=== PATIENT | male | born 1930 | race Caucasian/White ===

== ENCOUNTER 2016-08-21 13:40 | Inpatient (IN) | payer MEDICARE, BC ==
[~2016-08-21 13:40] MED LIST: ALPRAZOLAM0.5 MG PO; ATENOLOL25 MG PO; AZOR 5/20 MG TA1 TAB PO; BAYER81 MG PO; CALCIUM PO; CATAPRES-T0.1 MG/24 TD; FLOMAX0.4 MG PO; FUROSEMIDE40 MG PO; LORTAB 5/500 TA1 TAB PO; OMEPRAZOLE20 MG PO; POLYETHYLENE GLYCOL PO; SIMVASTATIN40 MG PO; TYLENOL325 MG PO; ZADITOR5 ML OP; [UNRECOGNIZED DRUG - OTHER] PO
[2016-08-21] MEDS ORDERED: ALLOPURINOL300 M1 PO (14:33)
[2016-08-21] MEDS ORDERED: ASPIRIN81 M1 PO (14:34)
[2016-08-21] MEDS ORDERED: XANAX0.25 M1 PO (14:34)
[2016-08-21] MEDS ORDERED: TENORMIN25 M1 PO (14:34)
[2016-08-21] MEDS ORDERED: CATAPRES-TTS 11 EACH TP (14:35)
[2016-08-21] MEDS ORDERED: CENTRUM SILVER1 EAC3 PO (14:35)
[2016-08-21] MEDS ORDERED: CALTRATE 600 +1 EAC2 PO (14:35)
[2016-08-21] MEDS ORDERED: FLECAINIDE ACET50 M1 PO (14:36)
[2016-08-21] MEDS ORDERED: LASIX40 M1 PO (14:37)
[2016-08-21] MEDS ORDERED: ZOCOR20 M1 PO (14:37)
[2016-08-21] MEDS ORDERED: OMEPRAZOLE20 M4 PO (14:37)
[2016-08-21] MEDS ORDERED: MIRALAX17 G2 PO (14:37)
[2016-08-21] MEDS ORDERED: VITAMIN D31000 UNI3 PO (14:38)
[2016-08-21] MEDS ORDERED: TART CHERRY CA1 EACH PO (14:38)
[2016-08-21] MEDS ORDERED: VITAMIN C500 M3 PO (14:38)
[2016-08-21] MEDS ORDERED: TYLENOL325 M2 PO (14:38)
[2016-08-21] MEDS ORDERED: NORVASC10 M2 PO (14:39)
[2016-08-21] MEDS ORDERED: CLARITIN10 M6 PO (14:39)
[2016-08-21] MEDS ORDERED: COZAAR50 M1 PO (14:39)
[2016-08-21 17:45] LABS: BASO % 0.2 % (0-2); EOS % 2.2 % (0-7); EOSINOPHIL ABSOLUTE COUNT 0.2 tho/cmm (0.0-0.7); HCT-HEMATOCRIT 33.7 % (36.0-53.5); HGB-HEMOGLOBIN 10.7 gm/dl (13.5-17.0); IMMATURE GRANULOCYTES ABSOLUTE 0.05 tho/cmm (0-0.03); IMMATURE GRANULOCYTES PERCENT 0.5 % (0-0.3); LYMPH % 25.4 % (20-45); LYMPH ABSOLUTE COUNT 2.7 tho/cmm (0.8-4.5); MCH (MEAN CORPUSCULAR HGB) 25.7 pg (28.0-32.0); MCHC MEAN CORPUSCULAR HGB CONC 31.8 % (32.0-36.0); MEAN PLATELET VOLUME 9.1 cmc (9.4-12.4); MONO % 7.7 % (0-12); MONOCYTE ABSOLUTE COUNT 0.8 tho/cmm (0.0-1.2); NEUTROPHIL ABSOLUTE COUNT 6.8 tho/cmm (1.6-8.0); NEUTROPHIL-AUTOMATED 6.8 tho/cmm (1.6-8.0); PLATELET COUNT 230 tho/cmm (150-450); RED BLOOD COUNT 4.16 mil/cmm (4.40-5.70); RED CELL DISTRIBUTION WIDTH 17.8 % (12.4-16.4); WHITE BLOOD COUNT 10.6 tho/cmm (4.0-10.0)
[2016-08-21 18:04] LABS: ALB/GLOB RATIO 0.6 (0.8-2.0); ALBUMIN 2.7 g/dl (3.5-5.0); ALKALINE PHOSPHATASE 73 U/L (33-138); ALT/SGPT 24 U/L (12-78); BILIRUBIN,TOTAL 0.3 mg/dl (0.0-1.5); BLOOD UREA NITROGEN 60 mg/dl (6-24); CALCIUM 8.7 mg/dl (8.5-10.5); CARBON DIOXIDE-VENOUS 25 mmol/L (22-32); CHLORIDE 106 mmol/l (96-110); CREATININE 3.63 mg/dl (0.60-1.30); GLUCOSE 89 mg/dL (70-110); SODIUM 139 mmol/L (135-145); eGFR VALUE FOR BLACK 17 mL/Min
[2016-08-21 18:05] LABS: ANION GAP 13 mmol/L (0-20); AST/SGOT 33 U/L (10-40); POTASSIUM 5.2 mmol/L (3.7-5.1)
[2016-08-21 20:48] LABS: URINE APPEARANCE CLEAR; URINE BILIRUBIN NEGATIVE (NEG); URINE BLOOD LARGE (NEG); URINE COLOR YELLOW; URINE GLUCOSE (UA) NEGATIVE (NEG); URINE KETONE NEGATIVE (NEG); URINE LEUKOCYTE ESTERASE NEGATIVE (NEG); URINE NITRITE NEGATIVE (NEG); URINE PROTEIN MODERATE (NEG)
[2016-08-21 20:54] LABS: URINE EPITHELIAL CELLS 0 /[HPF] (0-10); URINE RBC 15-20 /[HPF] (0-5); URINE WBC 0-1 /[HPF] (0-5)
[2016-08-21 21:03] LABS: URINE TOTAL PROTEIN-RANDOM 47.4 mg/dl (<11.8)
[2016-08-22 05:07] LABS: BASO % 0.7 % (0-2); BASO ABSOLUTE COUNT 0.1 tho/cmm (0.0-0.2); EOS % 2.1 % (0-7); EOSINOPHIL ABSOLUTE COUNT 0.2 tho/cmm (0.0-0.7); IMMATURE GRANULOCYTES ABSOLUTE 0.05 tho/cmm (0-0.03); IMMATURE GRANULOCYTES PERCENT 0.5 % (0-0.3); LYMPH % 14.5 % (20-45); LYMPH ABSOLUTE COUNT 1.5 tho/cmm (0.8-4.5); MCHC MEAN CORPUSCULAR HGB CONC 32.4 % (32.0-36.0); MCV (MEAN CELL VOLUME) 80.4 fl (82.0-96.0); MONO % 8.2 % (0-12); MONOCYTE ABSOLUTE COUNT 0.9 tho/cmm (0.0-1.2); NEUTROPHIL ABSOLUTE COUNT 7.7 tho/cmm (1.6-8.0); NEUTROPHIL-AUTOMATED 7.7 tho/cmm (1.6-8.0); PLATELET COUNT 268 tho/cmm (150-450); RED BLOOD COUNT 4.23 mil/cmm (4.40-5.70); RED CELL DISTRIBUTION WIDTH 17.9 % (12.4-16.4); WHITE BLOOD COUNT 10.4 tho/cmm (4.0-10.0)
[2016-08-22 05:28] LABS: IRON 37 ug/dl (49-181); IRON BINDING CAPACITY 209 ug/dl (250-450)
[2016-08-22 05:38] LABS: ALBUMIN 2.7 g/dl (3.5-5.0); ANION GAP 15 mmol/L (0-20); BLOOD UREA NITROGEN 62 mg/dl (6-24); CALCIUM 9.2 mg/dl (8.5-10.5); CARBON DIOXIDE-VENOUS 27 mmol/L (22-32); CHLORIDE 106 mmol/l (96-110); CREATININE 3.78 mg/dl (0.60-1.30); FERRITIN 269 ng/ml (22-388); GLUCOSE 107 mg/dL (70-110); PHOSPHOROUS 4.9 mg/dl (2.5-4.9); POTASSIUM 4.8 mmol/L (3.7-5.1); SODIUM 143 mmol/L (135-145); eGFR VALUE FOR BLACK 16 mL/Min
[2016-08-23 01:07] LABS: URINE PRT/CR RATIO 2.65 Ratio (0.0-0.20); URINE TOTAL PROTEIN-RANDOM 106.2 mg/dl (<11.8)
[2016-08-23 05:12] LABS: ALBUMIN 2.6 g/dl (3.5-5.0); ANION GAP 15 mmol/L (0-20); BLOOD UREA NITROGEN 64 mg/dl (6-24); CALCIUM 8.9 mg/dl (8.5-10.5); CARBON DIOXIDE-VENOUS 27 mmol/L (22-32); CHLORIDE 104 mmol/l (96-110); GLUCOSE 99 mg/dL (70-110); PHOSPHOROUS 4.8 mg/dl (2.5-4.9); POTASSIUM 4.9 mmol/L (3.7-5.1); SODIUM 141 mmol/L (135-145); eGFR VALUE FOR BLACK 15 mL/Min
--- NOTE | 2016-08-23 17:39 | NUR ---
AGREE WITH STUDENTS CHARTING 08/23, 08/22
[2016-08-24 06:54] LABS: ANION GAP 14 mmol/L (0-20); BLOOD UREA NITROGEN 68 mg/dl (6-24); CALCIUM 8.8 mg/dl (8.5-10.5); CARBON DIOXIDE-VENOUS 25 mmol/L (22-32); CHLORIDE 104 mmol/l (96-110); GLUCOSE 100 mg/dL (70-110); POTASSIUM 4.4 mmol/L (3.7-5.1); SODIUM 139 mmol/L (135-145); eGFR VALUE FOR BLACK 15 mL/Min
[2016-08-25 06:10] LABS: EOS % 0.1 % (0-7); HCT-HEMATOCRIT 34.7 % (36.0-53.5); HGB-HEMOGLOBIN 11.3 gm/dl (13.5-17.0); IMMATURE GRANULOCYTES ABSOLUTE 0.04 tho/cmm (0-0.03); IMMATURE GRANULOCYTES PERCENT 0.5 % (0-0.3); LYMPH % 14.7 % (20-45); LYMPH ABSOLUTE COUNT 1.1 tho/cmm (0.8-4.5); MCH (MEAN CORPUSCULAR HGB) 25.7 pg (28.0-32.0); MCHC MEAN CORPUSCULAR HGB CONC 32.6 % (32.0-36.0); MCV (MEAN CELL VOLUME) 78.9 fl (82.0-96.0); MEAN PLATELET VOLUME 9.4 cmc (9.4-12.4); MONO % 0.4 % (0-12); NEUTROPHIL ABSOLUTE COUNT 6.5 tho/cmm (1.6-8.0); NEUTROPHIL-AUTOMATED 6.5 tho/cmm (1.6-8.0); NEUTROPHILS % 84.3 % (40-80); PLATELET COUNT 208 tho/cmm (150-450); RED CELL DISTRIBUTION WIDTH 17.4 % (12.4-16.4); WHITE BLOOD COUNT 7.7 tho/cmm (4.0-10.0)
[2016-08-25 06:35] LABS: ALBUMIN 2.4 g/dl (3.5-5.0); BLOOD UREA NITROGEN 77 mg/dl (6-24); CALCIUM 8.7 mg/dl (8.5-10.5); CARBON DIOXIDE-VENOUS 22 mmol/L (22-32); CHLORIDE 105 mmol/l (96-110); PHOSPHOROUS 4.9 mg/dl (2.5-4.9); SODIUM 137 mmol/L (135-145)
[2016-08-25 07:17] LABS: ANION GAP 15 mmol/L (0-20); GLUCOSE 166 mg/dL (70-110); POTASSIUM 4.8 mmol/L (3.7-5.1)
[2016-08-25 07:18] LABS: CREATININE 4.09 mg/dl (0.60-1.30); eGFR VALUE FOR BLACK 15 mL/Min
[2016-08-25 13:52] LABS: INR 1.2 INR (0.9-1.1); PROTHROMBIN TIME 14.3 SECONDS (9.0-13.6)
[2016-08-26 05:26] LABS: ANION GAP 16 mmol/L (0-20); BLOOD UREA NITROGEN 86 mg/dl (6-24); CARBON DIOXIDE-VENOUS 22 mmol/L (22-32); CHLORIDE 106 mmol/l (96-110); CREATININE 4.04 mg/dl (0.60-1.30); GLUCOSE 148 mg/dL (70-110); SODIUM 140 mmol/L (135-145); eGFR VALUE FOR BLACK 15 mL/Min
[2016-08-26 05:29] LABS: POTASSIUM 4.4 mmol/L (3.7-5.1)
[2016-08-27 06:04] LABS: HCT-HEMATOCRIT 36.2 % (36.0-53.5); HGB-HEMOGLOBIN 11.7 gm/dl (13.5-17.0); IMMATURE GRANULOCYTES ABSOLUTE 0.07 tho/cmm (0-0.03); IMMATURE GRANULOCYTES PERCENT 0.4 % (0-0.3); LYMPH % 8.3 % (20-45); LYMPH ABSOLUTE COUNT 1.3 tho/cmm (0.8-4.5); MCH (MEAN CORPUSCULAR HGB) 25.7 pg (28.0-32.0); MCHC MEAN CORPUSCULAR HGB CONC 32.3 % (32.0-36.0); MCV (MEAN CELL VOLUME) 79.4 fl (82.0-96.0); MEAN PLATELET VOLUME 9.6 cmc (9.4-12.4); MONO % 2.7 % (0-12); MONOCYTE ABSOLUTE COUNT 0.4 tho/cmm (0.0-1.2); NEUTROPHIL ABSOLUTE COUNT 14.3 tho/cmm (1.6-8.0); NEUTROPHIL-AUTOMATED 14.3 tho/cmm (1.6-8.0); NEUTROPHILS % 88.6 % (40-80); PLATELET COUNT 231 tho/cmm (150-450); RED BLOOD COUNT 4.56 mil/cmm (4.40-5.70); RED CELL DISTRIBUTION WIDTH 17.8 % (12.4-16.4)
[2016-08-27 06:20] LABS: BLOOD UREA NITROGEN 84 mg/dl (6-24); CALCIUM 8.7 mg/dl (8.5-10.5); CARBON DIOXIDE-VENOUS 21 mmol/L (22-32); CHLORIDE 109 mmol/l (96-110); GLUCOSE 143 mg/dL (70-110); SODIUM 140 mmol/L (135-145)
[2016-08-27 06:23] LABS: CREATININE 3.55 mg/dl (0.60-1.30); PHOSPHOROUS 5.5 mg/dl (2.5-4.9); eGFR VALUE FOR BLACK 17 mL/Min
[2016-08-27 06:24] LABS: WHITE BLOOD COUNT 16.1 tho/cmm (4.0-10.0)
[2016-08-27 06:33] LABS: ALBUMIN 3.7 g/dl (3.5-5.0); ANION GAP 15 mmol/L (0-20); POTASSIUM 4.8 mmol/L (3.7-5.1)
[2016-08-28 05:28] LABS: INR 1.4 INR (0.9-1.1)
[2016-08-28 05:33] LABS: BASO % 0.1 % (0-2); HCT-HEMATOCRIT 34.5 % (36.0-53.5); HGB-HEMOGLOBIN 11.1 gm/dl (13.5-17.0); IMMATURE GRANULOCYTES PERCENT 0.6 % (0-0.3); LYMPH % 10.2 % (20-45); LYMPH ABSOLUTE COUNT 1.9 tho/cmm (0.8-4.5); MCH (MEAN CORPUSCULAR HGB) 25.5 pg (28.0-32.0); MCHC MEAN CORPUSCULAR HGB CONC 32.2 % (32.0-36.0); MCV (MEAN CELL VOLUME) 79.1 fl (82.0-96.0); MEAN PLATELET VOLUME 10.2 cmc (9.4-12.4); MONO % 6.4 % (0-12); MONOCYTE ABSOLUTE COUNT 1.2 tho/cmm (0.0-1.2); NEUTROPHILS % 82.7 % (40-80); PLATELET COUNT 198 tho/cmm (150-450); RED BLOOD COUNT 4.36 mil/cmm (4.40-5.70); RED CELL DISTRIBUTION WIDTH 17.9 % (12.4-16.4); WHITE BLOOD COUNT 18.2 tho/cmm (4.0-10.0)
[2016-08-28 05:43] LABS: ANION GAP 15 mmol/L (0-20); BLOOD UREA NITROGEN 79 mg/dl (6-24); CALCIUM 8.2 mg/dl (8.5-10.5); CARBON DIOXIDE-VENOUS 20 mmol/L (22-32); CHLORIDE 113 mmol/l (96-110); GLUCOSE 128 mg/dL (70-110); POTASSIUM 4.3 mmol/L (3.7-5.1); SODIUM 144 mmol/L (135-145); eGFR VALUE FOR BLACK 18 mL/Min
[2016-08-29 06:14] LABS: ALBUMIN 3.4 g/dl (3.5-5.0); ANION GAP 13 mmol/L (0-20); BLOOD UREA NITROGEN 72 mg/dl (6-24); CALCIUM 8.4 mg/dl (8.5-10.5); CARBON DIOXIDE-VENOUS 21 mmol/L (22-32); CHLORIDE 113 mmol/l (96-110); CREATININE 3.36 mg/dl (0.60-1.30); GLUCOSE 126 mg/dL (70-110); PHOSPHOROUS 4.3 mg/dl (2.5-4.9); SODIUM 143 mmol/L (135-145); eGFR VALUE FOR BLACK 19 mL/Min
--- NOTE | 2016-08-29 14:28 | NUR ---
AGREE WITH STUDENT CHARTING 4/5, 4/6
[2016-08-30 06:26] LABS: ANION GAP 16 mmol/L (0-20); BLOOD UREA NITROGEN 71 mg/dl (6-24); CALCIUM 8.1 mg/dl (8.5-10.5); CARBON DIOXIDE-VENOUS 15 mmol/L (22-32); CHLORIDE 115 mmol/l (96-110); CREATININE 3.25 mg/dl (0.60-1.30); GLUCOSE 127 mg/dL (70-110); SODIUM 141 mmol/L (135-145); eGFR VALUE FOR BLACK 19 mL/Min
[2016-08-30 06:28] LABS: POTASSIUM 4.5 mmol/L (3.7-5.1)
[2016-08-31 04:57] LABS: BASO % 0.1 % (0-2); EOS % 0.1 % (0-7); HCT-HEMATOCRIT 33.6 % (36.0-53.5); IMMATURE GRANULOCYTES ABSOLUTE 0.23 tho/cmm (0-0.03); IMMATURE GRANULOCYTES PERCENT 1.2 % (0-0.3); LYMPH % 8.8 % (20-45); LYMPH ABSOLUTE COUNT 1.7 tho/cmm (0.8-4.5); MCH (MEAN CORPUSCULAR HGB) 25.6 pg (28.0-32.0); MCHC MEAN CORPUSCULAR HGB CONC 32.7 % (32.0-36.0); MCV (MEAN CELL VOLUME) 78.1 fl (82.0-96.0); MEAN PLATELET VOLUME 10.4 cmc (9.4-12.4); MONO % 5.7 % (0-12); MONOCYTE ABSOLUTE COUNT 1.1 tho/cmm (0.0-1.2); NEUTROPHILS % 84.1 % (40-80); PLATELET COUNT 180 tho/cmm (150-450); RED CELL DISTRIBUTION WIDTH 17.9 % (12.4-16.4)
[2016-08-31 05:03] LABS: ALBUMIN 3.6 g/dl (3.5-5.0); ANION GAP 14 mmol/L (0-20); BLOOD UREA NITROGEN 72 mg/dl (6-24); CALCIUM 8.4 mg/dl (8.5-10.5); CARBON DIOXIDE-VENOUS 19 mmol/L (22-32); CHLORIDE 112 mmol/l (96-110); CREATININE 3.21 mg/dl (0.60-1.30); GLUCOSE 123 mg/dL (70-110); PHOSPHOROUS 3.8 mg/dl (2.5-4.9); POTASSIUM 4.1 mmol/L (3.7-5.1); SODIUM 141 mmol/L (135-145); eGFR VALUE FOR BLACK 20 mL/Min
[2016-09-01 06:01] LABS: BASO % 0.1 % (0-2); HCT-HEMATOCRIT 33.9 % (36.0-53.5); HGB-HEMOGLOBIN 11.5 gm/dl (13.5-17.0); IMMATURE GRANULOCYTES ABSOLUTE 0.42 tho/cmm (0-0.03); IMMATURE GRANULOCYTES PERCENT 1.8 % (0-0.3); LYMPH % 5.6 % (20-45); LYMPH ABSOLUTE COUNT 1.3 tho/cmm (0.8-4.5); MCH (MEAN CORPUSCULAR HGB) 25.8 pg (28.0-32.0); MCHC MEAN CORPUSCULAR HGB CONC 33.9 % (32.0-36.0); MEAN PLATELET VOLUME 10.4 cmc (9.4-12.4); MONO % 2.1 % (0-12); MONOCYTE ABSOLUTE COUNT 0.5 tho/cmm (0.0-1.2); NEUTROPHILS % 90.4 % (40-80); PLATELET COUNT 152 tho/cmm (150-450); RED BLOOD COUNT 4.46 mil/cmm (4.40-5.70); RED CELL DISTRIBUTION WIDTH 17.9 % (12.4-16.4); WHITE BLOOD COUNT 23.3 tho/cmm (4.0-10.0)
[2016-09-01 06:17] LABS: ANION GAP 15 mmol/L (0-20); BLOOD UREA NITROGEN 67 mg/dl (6-24); CALCIUM 8.6 mg/dl (8.5-10.5); CARBON DIOXIDE-VENOUS 17 mmol/L (22-32); CHLORIDE 113 mmol/l (96-110); CREATININE 3.23 mg/dl (0.60-1.30); GLUCOSE 127 mg/dL (70-110); POTASSIUM 4.2 mmol/L (3.7-5.1); SODIUM 141 mmol/L (135-145); eGFR VALUE FOR BLACK 19 mL/Min
[2016-09-01 07:01] LABS: ABG CO2 ARTERIAL 15 mmol/L (21-27); ARTERIAL BLD GAS O2 SATURATION 92 % (95-98); ARTERIAL BLOOD GAS PCO2 26 mmHg (32-45); ARTERIAL PO2 62 mmHg (70-100); BICARBONATE 15 mmol/L (21-28); BLOOD GAS BASE EXCESS -9 mM/L (-/+3); PH 7.36 Units (7.35-7.45)
[2016-09-01 09:11] LABS: INR 1.4 INR (0.9-1.1); PROTHROMBIN TIME 16.6 SECONDS (9.0-13.6)
[2016-09-01 09:22] LABS: ALBUMIN 3.7 g/dl (3.5-5.0); ALKALINE PHOSPHATASE 29 U/L (33-138); ALT/SGPT 17 U/L (12-78); ANION GAP 15 mmol/L (0-20); AST/SGOT 12 U/L (10-40); BILIRUBIN,TOTAL 1.3 mg/dl (0.0-1.5); BLOOD UREA NITROGEN 64 mg/dl (6-24); CALCIUM 8.6 mg/dl (8.5-10.5); CARBON DIOXIDE-VENOUS 16 mmol/L (22-32); CHLORIDE 113 mmol/l (96-110); CREATININE 3.34 mg/dl (0.60-1.30); GLUCOSE 125 mg/dL (70-110); POTASSIUM 4.1 mmol/L (3.7-5.1); SODIUM 140 mmol/L (135-145); eGFR VALUE FOR BLACK 19 mL/Min
[2016-09-01 09:38] LABS: PROCALCITONIN 2.07 ng/ml (0.05-0.09)
[2016-09-01 16:20] LABS: ANION GAP 18 mmol/L (0-20); BLOOD UREA NITROGEN 65 mg/dl (6-24); CALCIUM 8.4 mg/dl (8.5-10.5); CARBON DIOXIDE-VENOUS 16 mmol/L (22-32); CHLORIDE 108 mmol/l (96-110); CREATININE 3.35 mg/dl (0.60-1.30); POTASSIUM 3.9 mmol/L (3.7-5.1); SODIUM 138 mmol/L (135-145); eGFR VALUE FOR BLACK 19 mL/Min
[2016-09-01 16:21] LABS: GLUCOSE 233 mg/dL (70-110)
[2016-09-02 05:29] LABS: BASO % 0.1 % (0-2); HCT-HEMATOCRIT 32.1 % (36.0-53.5); IMMATURE GRANULOCYTES ABSOLUTE 0.23 tho/cmm (0-0.03); LYMPH % 5.7 % (20-45); LYMPH ABSOLUTE COUNT 1.3 tho/cmm (0.8-4.5); MCH (MEAN CORPUSCULAR HGB) 25.9 pg (28.0-32.0); MCHC MEAN CORPUSCULAR HGB CONC 34.3 % (32.0-36.0); MCV (MEAN CELL VOLUME) 75.5 fl (82.0-96.0); MEAN PLATELET VOLUME 10.4 cmc (9.4-12.4); MONO % 2.2 % (0-12); MONOCYTE ABSOLUTE COUNT 0.5 tho/cmm (0.0-1.2); NEUTROPHIL ABSOLUTE COUNT 20.1 tho/cmm (1.6-8.0); NEUTROPHIL-AUTOMATED 20.1 tho/cmm (1.6-8.0); PLATELET COUNT 142 tho/cmm (150-450); RED BLOOD COUNT 4.25 mil/cmm (4.40-5.70); RED CELL DISTRIBUTION WIDTH 18.2 % (12.4-16.4); WHITE BLOOD COUNT 22.1 tho/cmm (4.0-10.0)
[2016-09-02 05:39] LABS: ALBUMIN 2.8 g/dl (3.5-5.0); ANION GAP 18 mmol/L (0-20); BLOOD UREA NITROGEN 66 mg/dl (6-24); CALCIUM 8.8 mg/dl (8.5-10.5); CARBON DIOXIDE-VENOUS 19 mmol/L (22-32); CHLORIDE 108 mmol/l (96-110); CREATININE 3.61 mg/dl (0.60-1.30); GLUCOSE 149 mg/dL (70-110); PHOSPHOROUS 4.2 mg/dl (2.5-4.9); SODIUM 141 mmol/L (135-145); eGFR VALUE FOR BLACK 17 mL/Min
[2016-09-03 04:37] LABS: ALBUMIN 3.5 g/dl (3.5-5.0); ANION GAP 20 mmol/L (0-20); BLOOD UREA NITROGEN 73 mg/dl (6-24); CALCIUM 8.4 mg/dl (8.5-10.5); CARBON DIOXIDE-VENOUS 18 mmol/L (22-32); CHLORIDE 108 mmol/l (96-110); CREATININE 4.04 mg/dl (0.60-1.30); GLUCOSE 133 mg/dL (70-110); MAGNESIUM 1.6 mg/dl (1.3-2.6); SODIUM 142 mmol/L (135-145); eGFR VALUE FOR BLACK 15 mL/Min
[2016-09-03 04:43] LABS: PHOSPHOROUS 5.7 mg/dl (2.5-4.9)
[2016-09-03 04:55] LABS: ABG CO2 ARTERIAL 15 mmol/L (21-27); ARTERIAL BLD GAS O2 SATURATION 92 % (95-98); ARTERIAL BLOOD GAS PCO2 29 mmHg (32-45); ARTERIAL PO2 66 mmHg (70-100); BICARBONATE 14 mmol/L (21-28); BLOOD GAS BASE EXCESS -11 mM/L (-/+3)
[2016-09-03 05:07] LABS: BASO % 0.1 % (0-2); HCT-HEMATOCRIT 31.8 % (36.0-53.5); HGB-HEMOGLOBIN 11.1 gm/dl (13.5-17.0); IMMATURE GRANULOCYTES ABSOLUTE 0.42 tho/cmm (0-0.03); IMMATURE GRANULOCYTES PERCENT 1.8 % (0-0.3); LYMPH % 5.1 % (20-45); LYMPH ABSOLUTE COUNT 1.2 tho/cmm (0.8-4.5); MCH (MEAN CORPUSCULAR HGB) 26.1 pg (28.0-32.0); MCHC MEAN CORPUSCULAR HGB CONC 34.9 % (32.0-36.0); MCV (MEAN CELL VOLUME) 74.6 fl (82.0-96.0); MEAN PLATELET VOLUME 10.7 cmc (9.4-12.4); MONO % 2.4 % (0-12); MONOCYTE ABSOLUTE COUNT 0.6 tho/cmm (0.0-1.2); NEUTROPHIL ABSOLUTE COUNT 21.2 tho/cmm (1.6-8.0); NEUTROPHIL-AUTOMATED 21.2 tho/cmm (1.6-8.0); NEUTROPHILS % 90.6 % (40-80); PLATELET COUNT 143 tho/cmm (150-450); RED BLOOD COUNT 4.26 mil/cmm (4.40-5.70); RED CELL DISTRIBUTION WIDTH 18.4 % (12.4-16.4); WHITE BLOOD COUNT 23.4 tho/cmm (4.0-10.0)
[2016-09-03 07:19] LABS: WBC MORPHOLOGY TOXIC GRANULATION
[2016-09-04 05:15] LABS: BASO % 0.1 % (0-2); HCT-HEMATOCRIT 29.8 % (36.0-53.5); HGB-HEMOGLOBIN 10.2 gm/dl (13.5-17.0); IMMATURE GRANULOCYTES ABSOLUTE 0.31 tho/cmm (0-0.03); IMMATURE GRANULOCYTES PERCENT 1.6 % (0-0.3); LYMPH % 4.9 % (20-45); LYMPH ABSOLUTE COUNT 0.9 tho/cmm (0.8-4.5); MCH (MEAN CORPUSCULAR HGB) 25.6 pg (28.0-32.0); MCHC MEAN CORPUSCULAR HGB CONC 34.2 % (32.0-36.0); MCV (MEAN CELL VOLUME) 74.7 fl (82.0-96.0); MONO % 3.4 % (0-12); MONOCYTE ABSOLUTE COUNT 0.7 tho/cmm (0.0-1.2); NEUTROPHIL ABSOLUTE COUNT 17.4 tho/cmm (1.6-8.0); NEUTROPHIL-AUTOMATED 17.4 tho/cmm (1.6-8.0); PLATELET COUNT 159 tho/cmm (150-450); RED BLOOD COUNT 3.99 mil/cmm (4.40-5.70); RED CELL DISTRIBUTION WIDTH 18.4 % (12.4-16.4); WHITE BLOOD COUNT 19.3 tho/cmm (4.0-10.0)
[2016-09-04 05:23] LABS: ANION GAP 18 mmol/L (0-20); BLOOD UREA NITROGEN 89 mg/dl (6-24); CALCIUM 8.3 mg/dl (8.5-10.5); CARBON DIOXIDE-VENOUS 17 mmol/L (22-32); CHLORIDE 108 mmol/l (96-110); CREATININE 4.52 mg/dl (0.60-1.30); GLUCOSE 136 mg/dL (70-110); SODIUM 139 mmol/L (135-145); eGFR VALUE FOR BLACK 13 mL/Min
[2016-09-05 06:13] LABS: BASO % 0.1 % (0-2); HCT-HEMATOCRIT 28.2 % (36.0-53.5); HGB-HEMOGLOBIN 9.7 gm/dl (13.5-17.0); IMMATURE GRANULOCYTES ABSOLUTE 0.58 tho/cmm (0-0.03); IMMATURE GRANULOCYTES PERCENT 3.9 % (0-0.3); LYMPH % 7.1 % (20-45); LYMPH ABSOLUTE COUNT 1.1 tho/cmm (0.8-4.5); MCH (MEAN CORPUSCULAR HGB) 25.9 pg (28.0-32.0); MCHC MEAN CORPUSCULAR HGB CONC 34.4 % (32.0-36.0); MCV (MEAN CELL VOLUME) 75.2 fl (82.0-96.0); MEAN PLATELET VOLUME 9.8 cmc (9.4-12.4); MONO % 4.9 % (0-12); MONOCYTE ABSOLUTE COUNT 0.7 tho/cmm (0.0-1.2); NEUTROPHIL ABSOLUTE COUNT 12.7 tho/cmm (1.6-8.0); NEUTROPHIL-AUTOMATED 12.7 tho/cmm (1.6-8.0); PLATELET COUNT 127 tho/cmm (150-450); RED BLOOD COUNT 3.75 mil/cmm (4.40-5.70); RED CELL DISTRIBUTION WIDTH 18.6 % (12.4-16.4); WHITE BLOOD COUNT 15.1 tho/cmm (4.0-10.0)
[2016-09-05 06:26] LABS: INR 1.4 INR (0.9-1.1); PROTHROMBIN TIME 16.6 SECONDS (9.0-13.6)
[2016-09-05 06:33] LABS: ALBUMIN 3.5 g/dl (3.5-5.0); ANION GAP 16 mmol/L (0-20); BLOOD UREA NITROGEN 87 mg/dl (6-24); CALCIUM 7.9 mg/dl (8.5-10.5); CARBON DIOXIDE-VENOUS 17 mmol/L (22-32); CHLORIDE 114 mmol/l (96-110); GLUCOSE 123 mg/dL (70-110); PHOSPHOROUS 5.8 mg/dl (2.5-4.9); POTASSIUM 4.2 mmol/L (3.7-5.1); SODIUM 143 mmol/L (135-145); eGFR VALUE FOR BLACK 13 mL/Min
[2016-09-06 05:17] LABS: BASO % 0.4 % (0-2); BASO ABSOLUTE COUNT 0.1 tho/cmm (0.0-0.2); EOS % 0.1 % (0-7); HCT-HEMATOCRIT 27.6 % (36.0-53.5); HGB-HEMOGLOBIN 9.5 gm/dl (13.5-17.0); IMMATURE GRANULOCYTES ABSOLUTE 0.64 tho/cmm (0-0.03); LYMPH % 11.8 % (20-45); LYMPH ABSOLUTE COUNT 1.9 tho/cmm (0.8-4.5); MCH (MEAN CORPUSCULAR HGB) 25.9 pg (28.0-32.0); MCHC MEAN CORPUSCULAR HGB CONC 34.4 % (32.0-36.0); MCV (MEAN CELL VOLUME) 75.2 fl (82.0-96.0); MEAN PLATELET VOLUME 9.7 cmc (9.4-12.4); MONO % 6.3 % (0-12); NEUTROPHIL ABSOLUTE COUNT 12.3 tho/cmm (1.6-8.0); NEUTROPHIL-AUTOMATED 12.3 tho/cmm (1.6-8.0); NEUTROPHILS % 77.4 % (40-80); PLATELET COUNT 127 tho/cmm (150-450); RED BLOOD COUNT 3.67 mil/cmm (4.40-5.70); RED CELL DISTRIBUTION WIDTH 18.8 % (12.4-16.4); WHITE BLOOD COUNT 15.8 tho/cmm (4.0-10.0)
[2016-09-06 05:25] LABS: ANION GAP 18 mmol/L (0-20); BLOOD UREA NITROGEN 95 mg/dl (6-24); CARBON DIOXIDE-VENOUS 14 mmol/L (22-32); CHLORIDE 114 mmol/l (96-110); CREATININE 4.88 mg/dl (0.60-1.30); GLUCOSE 112 mg/dL (70-110); MAGNESIUM 1.9 mg/dl (1.8-2.6); POTASSIUM 4.3 mmol/L (3.7-5.1); SODIUM 142 mmol/L (135-145); eGFR VALUE FOR BLACK 12 mL/Min
[2016-09-07 05:22] LABS: BASO % 0.3 % (0-2); BASO ABSOLUTE COUNT 0.1 tho/cmm (0.0-0.2); EOS % 0.2 % (0-7); HCT-HEMATOCRIT 29.8 % (36.0-53.5); HGB-HEMOGLOBIN 10.1 gm/dl (13.5-17.0); IMMATURE GRANULOCYTES ABSOLUTE 0.66 tho/cmm (0-0.03); IMMATURE GRANULOCYTES PERCENT 3.8 % (0-0.3); LYMPH % 14.9 % (20-45); LYMPH ABSOLUTE COUNT 2.6 tho/cmm (0.8-4.5); MCH (MEAN CORPUSCULAR HGB) 25.4 pg (28.0-32.0); MCHC MEAN CORPUSCULAR HGB CONC 33.9 % (32.0-36.0); MCV (MEAN CELL VOLUME) 75.1 fl (82.0-96.0); MEAN PLATELET VOLUME 9.9 cmc (9.4-12.4); MONO % 4.6 % (0-12); MONOCYTE ABSOLUTE COUNT 0.8 tho/cmm (0.0-1.2); NEUTROPHIL ABSOLUTE COUNT 13.3 tho/cmm (1.6-8.0); NEUTROPHIL-AUTOMATED 13.3 tho/cmm (1.6-8.0); NEUTROPHILS % 76.2 % (40-80); PLATELET COUNT 130 tho/cmm (150-450); RED BLOOD COUNT 3.97 mil/cmm (4.40-5.70); RED CELL DISTRIBUTION WIDTH 18.6 % (12.4-16.4); WHITE BLOOD COUNT 17.5 tho/cmm (4.0-10.0)
[2016-09-07 05:32] LABS: ALBUMIN 3.8 g/dl (3.5-5.0); ANION GAP 14 mmol/L (0-20); BLOOD UREA NITROGEN 60 mg/dl (6-24); CALCIUM 7.9 mg/dl (8.5-10.5); CHLORIDE 111 mmol/l (96-110); CREATININE 3.73 mg/dl (0.60-1.30); GLUCOSE 100 mg/dL (70-110); PHOSPHOROUS 4.3 mg/dl (2.5-4.9); SODIUM 144 mmol/L (135-145); eGFR VALUE FOR BLACK 16 mL/Min
[2016-09-07 05:33] LABS: CARBON DIOXIDE-VENOUS 23 mmol/L (22-32)
[2016-09-08 04:14] LABS: BASO % 0.3 % (0-2); BASO ABSOLUTE COUNT 0.1 tho/cmm (0.0-0.2); EOS % 0.2 % (0-7); HCT-HEMATOCRIT 31.2 % (36.0-53.5); HGB-HEMOGLOBIN 10.5 gm/dl (13.5-17.0); IMMATURE GRANULOCYTES ABSOLUTE 0.78 tho/cmm (0-0.03); IMMATURE GRANULOCYTES PERCENT 3.8 % (0-0.3); LYMPH % 15.3 % (20-45); LYMPH ABSOLUTE COUNT 3.1 tho/cmm (0.8-4.5); MCH (MEAN CORPUSCULAR HGB) 25.6 pg (28.0-32.0); MCHC MEAN CORPUSCULAR HGB CONC 33.7 % (32.0-36.0); MCV (MEAN CELL VOLUME) 76.1 fl (82.0-96.0); MEAN PLATELET VOLUME 9.8 cmc (9.4-12.4); MONOCYTE ABSOLUTE COUNT 0.8 tho/cmm (0.0-1.2); NEUTROPHIL ABSOLUTE COUNT 15.5 tho/cmm (1.6-8.0); NEUTROPHIL-AUTOMATED 15.5 tho/cmm (1.6-8.0); NEUTROPHILS % 76.4 % (40-80); PLATELET COUNT 156 tho/cmm (150-450); RED CELL DISTRIBUTION WIDTH 18.6 % (12.4-16.4); WHITE BLOOD COUNT 20.3 tho/cmm (4.0-10.0)
[2016-09-08 04:21] LABS: ALBUMIN 3.4 g/dl (3.5-5.0); ANION GAP 15 mmol/L (0-20); BLOOD UREA NITROGEN 42 mg/dl (6-24); CARBON DIOXIDE-VENOUS 25 mmol/L (22-32); CHLORIDE 104 mmol/l (96-110); CREATININE 3.23 mg/dl (0.60-1.30); GLUCOSE 123 mg/dL (70-110); PHOSPHOROUS 3.6 mg/dl (2.5-4.9); POTASSIUM 3.5 mmol/L (3.7-5.1); SODIUM 140 mmol/L (135-145); eGFR VALUE FOR BLACK 19 mL/Min
[2016-09-09 04:32] LABS: ALBUMIN 3.2 g/dl (3.5-5.0); ANION GAP 13 mmol/L (0-20); BLOOD UREA NITROGEN 56 mg/dl (6-24); CALCIUM 8.2 mg/dl (8.5-10.5); CARBON DIOXIDE-VENOUS 25 mmol/L (22-32); CHLORIDE 104 mmol/l (96-110); CREATININE 3.92 mg/dl (0.60-1.30); GLUCOSE 135 mg/dL (70-110); PHOSPHOROUS 4.7 mg/dl (2.5-4.9); POTASSIUM 3.8 mmol/L (3.7-5.1); SODIUM 138 mmol/L (135-145); eGFR VALUE FOR BLACK 15 mL/Min
[2016-09-10 06:11] LABS: BASO % 0.3 % (0-2); BASO ABSOLUTE COUNT 0.1 tho/cmm (0.0-0.2); HCT-HEMATOCRIT 29.6 % (36.0-53.5); HGB-HEMOGLOBIN 9.9 gm/dl (13.5-17.0); IMMATURE GRANULOCYTES PERCENT 2.9 % (0-0.3); LYMPH % 21.5 % (20-45); LYMPH ABSOLUTE COUNT 3.8 tho/cmm (0.8-4.5); MCH (MEAN CORPUSCULAR HGB) 25.7 pg (28.0-32.0); MCHC MEAN CORPUSCULAR HGB CONC 33.4 % (32.0-36.0); MCV (MEAN CELL VOLUME) 76.9 fl (82.0-96.0); MEAN PLATELET VOLUME 9.5 cmc (9.4-12.4); MONO % 3.8 % (0-12); MONOCYTE ABSOLUTE COUNT 0.7 tho/cmm (0.0-1.2); NEUTROPHIL ABSOLUTE COUNT 12.5 tho/cmm (1.6-8.0); NEUTROPHIL-AUTOMATED 12.5 tho/cmm (1.6-8.0); NEUTROPHILS % 71.5 % (40-80); PLATELET COUNT 167 tho/cmm (150-450); RED BLOOD COUNT 3.85 mil/cmm (4.40-5.70); RED CELL DISTRIBUTION WIDTH 18.7 % (12.4-16.4); WHITE BLOOD COUNT 17.5 tho/cmm (4.0-10.0)
[2016-09-10 06:41] LABS: ANION GAP 13 mmol/L (0-20); BLOOD UREA NITROGEN 38 mg/dl (6-24); CARBON DIOXIDE-VENOUS 25 mmol/L (22-32); CHLORIDE 103 mmol/l (96-110); GLUCOSE 109 mg/dL (70-110); PHOSPHOROUS 3.7 mg/dl (2.5-4.9); POTASSIUM 4.2 mmol/L (3.7-5.1); SODIUM 137 mmol/L (135-145); eGFR VALUE FOR BLACK 22 mL/Min
[2016-09-10 07:22] LABS: CREATININE 2.92 mg/dl (0.60-1.30)
[2016-09-11 05:36] LABS: INR 1.1 INR (0.9-1.1); PROTHROMBIN TIME 12.3 SECONDS (9.0-13.6)
[2016-09-11 05:57] LABS: ALBUMIN 2.9 g/dl (3.5-5.0); ANION GAP 15 mmol/L (0-20); BLOOD UREA NITROGEN 52 mg/dl (6-24); CALCIUM 8.1 mg/dl (8.5-10.5); CARBON DIOXIDE-VENOUS 23 mmol/L (22-32); CHLORIDE 103 mmol/l (96-110); CREATININE 3.46 mg/dl (0.60-1.30); GLUCOSE 128 mg/dL (70-110); POTASSIUM 4.5 mmol/L (3.7-5.1); SODIUM 136 mmol/L (135-145); eGFR VALUE FOR BLACK 18 mL/Min
[2016-09-12 05:12] LABS: ANION GAP 12 mmol/L (0-20); BLOOD UREA NITROGEN 33 mg/dl (6-24); CALCIUM 8.1 mg/dl (8.5-10.5); CARBON DIOXIDE-VENOUS 27 mmol/L (22-32); CHLORIDE 102 mmol/l (96-110); CREATININE 2.65 mg/dl (0.60-1.30); GLUCOSE 106 mg/dL (70-110); POTASSIUM 4.8 mmol/L (3.7-5.1); SODIUM 136 mmol/L (135-145); eGFR VALUE FOR BLACK 25 mL/Min
[2016-09-12] MEDS ORDERED: BACTRIM DS TAB1 EAC2 PO (15:40)
[2016-09-12] MEDS ORDERED: NYSTATIN15 G1 TOP (15:41)
[2016-09-12] MEDS ORDERED: NYSTATIN100000 UNI SSW (15:43)
[2016-09-12] MEDS ORDERED: AMIODARONE HCL200 M1 PO (15:44)
[2016-09-12] MEDS ORDERED: PROTONIX40 M2 PO (15:51)
[2016-09-12] MEDS ORDERED: DELTASONE20 MG PO (15:54)
[2016-09-12] MEDS ORDERED: COZAAR50 M1 PO (16:09)
[2016-12-03] MEDS ORDERED: LASIX40 M1 PO (10:21)
[2016-12-03] MEDS ORDERED: TYLENOL EXTRA500 M1 PO (16:10)
[2016-12-03] MEDS ORDERED: ZINC OXIDE30 G1 TOP (16:11)
[2016-12-03] MEDS ORDERED: PREDNISONE5 M1 PO (16:11)
[2016-12-03] MEDS ORDERED: OMEPRAZOLE20 M3 PO (16:12)
[2016-12-03] MEDS ORDERED: ZOCOR10 M1 PO (16:13)
[2016-12-03] MEDS ORDERED: CATAPRES-TTS 11 EACH TD (16:13)
[2016-12-03] MEDS ORDERED: LASIX80 M1 PO (16:14)
[2016-12-03] MEDS ORDERED: AMIODARONE HCL200 M1 PO (16:14)
[2016-12-10] MEDS ORDERED: LEVAQUIN500 M1 PO (14:20)
[2016-12-10] MEDS ORDERED: AMIODARONE HCL200 M1 PO (14:21)
[2016-12-10] MEDS ORDERED: ELIQUIS2.5 M1 PO (14:21)
[2016-12-11] MEDS ORDERED: TYLENOL325 M2 PO ×2 (08:43→08:44)
[2017-02-17] MEDS ORDERED: AERONEB GO NEB1 EACH MC (15:03)
[2017-02-17] MEDS ORDERED: BACTRIM DS TAB1 EAC2 PO (15:03)
[2017-02-17] MEDS ORDERED: OXYGEN (15:04)
[2017-02-17] MEDS ORDERED: CPAP (15:05)
[2017-02-18] MEDS ORDERED: MUCINEX600 M1 PO (11:52)
[2017-02-18] MEDS ORDERED: ULTRAM50 M1 PO (11:52)
== END 2016-09-12 20:10 | disposition home health service (06) | DRG 291 ==
LOC: PCUB 13:40 → CCU 09-01 08:36 → PCUB 09-03 16:38
PROVIDERS: Family Medicine; Internal Medicine; Internal Medicine Nephrology; Internal Medicine Pulmonary Disease; Physician Assistant; Radiology Diagnostic Radiology; ADMIT Internal Medicine Cardiovascular Disease
PROC: 5A09457 Assistance with Respiratory Ventilation, 24-96 Consecutive Hours, Continuous Positive Airway Pressure (ICD-10-PCS; principal; 2016-08-21)
PROC: 0TB03ZX Excision of Right Kidney, Percutaneous Approach, Diagnostic (ICD-10-PCS; 2016-08-22)
PROC: 05HF33Z Insertion of Infusion Device into Left Cephalic Vein, Percutaneous Approach (ICD-10-PCS; 2016-09-01)
PROC: B54NZZA Ultrasonography of Left Upper Extremity Veins, Guidance (ICD-10-PCS; 2016-09-01)
PROC: 5A1D60Z (ICD-10-PCS; 2016-09-06)
PROC: 05HM33Z Insertion of Infusion Device into Right Internal Jugular Vein, Percutaneous Approach (ICD-10-PCS; 2016-09-11)
PROC: B543ZZA Ultrasonography of Right Jugular Veins, Guidance (ICD-10-PCS; 2016-09-11)
DX: I13.0 Hypertensive heart and chronic kidney disease with heart failure and stage 1 through stage 4 chronic kidney disease, or unspecified chronic kidney disease (principal); A41.9 Sepsis, unspecified organism; J96.01 Acute respiratory failure with hypoxia; R65.20 Severe sepsis without septic shock; J18.9 Pneumonia, unspecified organism; N17.9 Acute kidney failure, unspecified; B37.0 Candidal stomatitis; E87.2 Acidosis; N18.3 Chronic kidney disease, stage 3 (moderate); I50.33 Acute on chronic diastolic (congestive) heart failure; I27.2 Other secondary pulmonary hypertension; I48.0 Paroxysmal atrial fibrillation; N40.0 Benign prostatic hyperplasia without lower urinary tract symptoms; T38.0X5A Adverse effect of glucocorticoids and synthetic analogues, initial encounter; Z85.3 Personal history of malignant neoplasm of breast; G47.33 Obstructive sleep apnea (adult) (pediatric); I71.4 Abdominal aortic aneurysm, without rupture; M10.9 Gout, unspecified; Z86.73 Personal history of transient ischemic attack (TIA), and cerebral infarction without residual deficits; D64.9 Anemia, unspecified; R04.0 Epistaxis
CPT/HCPCS: C1750; C1751; C1752; C1769; J0282; J0610; J0885; J1568; J1644; J1815; J1940; J1956; J2250; J2543; J2930; J3010; J3370; J7050; J7512; P9045